=== PATIENT | female | born 1990 | race Caucasian/White ===

== ENCOUNTER 2022-11-05 13:48 | Emergency (ER) | payer MEDICAID ==
[~2022-11-05] VITALS: Ht 167.6 cm; Wt 59.9 kg
[2022-11-05] MEDS ORDERED: LORA10TA7 PO (14:55)
--- NOTE | 2022-11-05 15:04 | NUR ---
Patient discharged to home in stable condition. Written and verbal after care instructions given. Patient verbalizes understanding of instructions. Stressed follow up or return to ER for worsening s/s.
== END 2022-11-05 15:04 | disposition home or self-care (01) ==
LOC: ER 13:48
DX: J32.9 Chronic sinusitis, unspecified (principal)
CPT/HCPCS: A4663